=== PATIENT | female | born 1960 | race Caucasian/White ===

== ENCOUNTER 2016-08-21 15:05 | Outpatient (CLI) ==
--- NOTE | 2016-08-21 15:36 | DI ---
EXAM: Cervical spine three view HISTORY: Pain COMPARISON: None TECHNIQUE: Three views cervical spine were performed FINDINGS: Vertebral bodies normal height. No fracture. No subluxation. Intervertebral disc space s maintained. Small marginal osteophyte formation. Mild multileve uncovertebral hypertrophy. Prev ertebral soft tissues appear normal. IMPRESSION: Mild degenerative changes.
--- NOTE | 2016-08-21 15:36 | DI ---
EXAM: Radiographs, left shoulder HISTORY: Left shoulder pain. COMPARISON: None available. TECHNIQUE: Three views. FINDINGS: Bone mineralization is decreased. There is no fracture or dislocation. The joint spaces are maintained. No focal soft tissue abnormality is seen. IMPRESSION: No acute abnormality of the left shoulder.
== END 2016-08-21 15:06 | disposition home or self-care (01) ==
LOC: RAD 15:05
PROVIDERS: ATTEND Internal Medicine
DX: M54.2 Cervicalgia (principal); M25.512 Pain in left shoulder

== ENCOUNTER 2016-09-30 08:49 | Outpatient (RCR) ==
--- NOTE | 2016-10-02 15:47 | RS.OPPTEV2 ---
Date of Note: 09/30/16 Visit #: 1 Date of Evaluation: 09/30/16 Payer Source: Insurance Treatment Diagnosis: Neck pain and left radiating symptoms History of Condition/Mechanism of Injury:: Patient states neck pain started in early August 2016, without any know injury. States she has had sciatica symptoms since 2006. Prior Level of Function.....Patient was independent with: ADL's, Self Care, Work /Vocation, Caregiving, Ambulation/Mobility, Community Integration/Access Level of Function: Reports difficulty with driving and reading due to neck pain. Functional Limitations: Sleep, ADL's, Reaching, Lifting Current Subjective/complaints:: Patient reports pain in the neck and left shoulder area. States pain in the left UE is constant. Reports left shoulder pain increases with ROM. Also states she cannot lay on the left shoulder. Reports no symptoms in the right UE. She denies tingling or numbness in the Left UE. States she has severe headaches that seem to start at the left shoulder and go up to the base of the head. States she does not have much biological aide in the left hand. 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 She also has to be able to carry supplies. States she will have to pass a test before returning to work for lifting and gripping. Treatment Side (optional): Left Medical History Smoking Status: Current some day smoker Hx Home Medications: Gabapentin Patient's Goals: Her goal is to get relief of neck and left UE pain. Pain Assessment - Pain Description Pain Location: left side of neck and left shoulder Current Pain Intensity: 9/10 Worst Pain Intensity: 15/10 Functional Outcome Measure Neck Disability Index: 56 - G Codes & Severity Modifier G Codes & Modifier: NA Source of G Code score: NA Observation - Observation Posture: Forward Head, Rounded Shoulders Handedness: Right Shoulder ROM: Right WFL's Shoulder Muscle Strength: Right WFL's - Left Shoulder ROM Comments: Left shoulder flexion: actively 92 degrees, passively 85-90 degrees. shoulder abduction 70 degrees actively, 90 degrees passively. ER actively to 45 -50 degrees, IR WFL's . All ROM is limited by pain. Left elbow, wrist, and hand AROM is WFL's. Cervical spine AROM is WFL's. - Left Shoulder Strength Comments: Patient exhibits general weakness with MMT of left UE. She demonstrates generally 4-/5. - Special Tests Shoulder Empty Can (Supraspinatus) Test: Positive Left Shoulder Speed's Sign Test: Negative Left Shoulder Drop Arm Test: Negative Left Shoulder Longoria-Prince Impingement Test: Negative Left Bag Liner Strength Left Hand Bag Liner Strength: 10 lbs. Right Hand Bag Liner Strength: 75 lbs. Dynamometer Testing Position: 2nd Position Palpation Comments:: Patient reports tenderness along the left upper traps and left lower cervical paraspinals. Also reports tenderness over the long head of the biceps tendon. Demonstrates minimal increased muscle tone along bilateral cervical paraspinals and upper traps. Sensation - Sensation Right Upper Extremity: Intact/Normal Left Upper Extremity: Intact/Normal - Treatment Modality: Ultrasound Parameters/Method Applied: 1.6 w/cm2 continuous X 10 mins to left upper traps and cervical paraspinals. Patient Position: Sitting Interventions - Exercise/Activities/Manual Therapy Exercises/Activities: Instructed patient in pendulum exercise, scapular retraction, and cervical stretching into lateral flexion and rotation. Manual Therapy: NA HOME EXERCISE PROGRAM: pendulum exercise, scapular retraction, and cervical stretching into lateral flexion and rotation. - Charges Total Direct Minutes: 45 mins Total Treatment Time: 45 mins Procedures billed for this date of service:: Amarjit Ortega, Assessment Assessment: Patient presents with a diagnosis of cervical radiculopathy and cervicalgia. She reports neck and left UE pain. She exhibits limited left shoulder AROM due to reports of pain. Upon MMT the left UE, she demonstrates generalized weakness and presents a submaximal effort with testing left biological aide strength. Left shoulder Supraspinatus test ilicits pain, but Impingement test does not. It is difficult to determine her source of pain, or to determine if it may be overlapping from the neck and shoulder. She demonstrates potential to benefit from modalities, exercises, and education to reduce her symptoms and be able to return to her prior level of function. Patient Education: Education of diagnosis, Body/Joint mechanics, Home Exercise Program, Education of Plan of Care Rehab Potential: Good Short Term Goals Goal #1: Patient independent in basic HEP. Goal to be met by: 10/16/16 Goal #2: Left UE pain frequency decreased to less than constant. Goal to be met by: 10/16/16 Goal #3: Left shoulder AROM WFL's. Goal to be met by: 10/16/16 Goal #4: Tenderness at the left upper traps decreased to minimal. Goal to be met by: 10/16/16 Gis Scientist Goals Goal #1: Pt knows HEP and to continue ex's to maintain functional level at D/C. Goal to be met by: 11/11/16 Goal #2: Neck Disability index improved to 20. Goal to be met by: 11/11/16 Goal #3: Pt will perform all ADL's & functional activities w/o right UE or neck pain Goal to be met by: 11/11/16 Goal #4: Pt will return to work with minimal limitations. Goal to be met by: 11/11/16 Plan - Treatment to be Provided Procedures: Therapeutic Exercises, Therapeutic Activity, Manual Therapy, Patient Education Modalities: Electrical Stimulation, Ultrasound/Phonophoresis, Cryotherapy, Hot Packs, Mechanical Traction (cervical) - Treatment Plan Frequency: 3 X week Duration: 4 weeks ORDER # VISITS AND/OR THROUGH DATE: 11/11/16 - Treatment Code (1) Arm pain Qualifiers: Laterality: left Qualified Description: Pain of left upper extremity Qualifier Code(s): (M79.602) Pain in left arm (2) Neck pain Comments: M54.2 (3) Cervical radiculopathy Comments: M54.12
== END 2016-10-01 ==
PROVIDERS: ATTEND Internal Medicine
DX: M54.12 Radiculopathy, cervical region (principal); M54.2 Cervicalgia; M54.30 Sciatica, unspecified side

== ENCOUNTER 2017-08-18 09:11 | Outpatient (CLI) ==
--- NOTE | 2017-08-19 09:05 | MRI ---
EXAM: Lumbar spine MRI without contrast. HISTORY: Back pain and bilateral leg numbness. COMPARISON: Lumbar spine radiographs 11/10/2014 and lumbar spine MRI 02/05/2012. TECHNIQUE: Multiplanar, multisequence MR images were acquired lumbar spine without contrast. FINDINGS: Conus medullaris ends at L1-2 is normal configuration and signal intensity. The lumbar ve rtebra are normal in height, AP alignment and intrinsic bone marrow signal. There is minor lumbar ve ntral spondylosis with reactive fatty marrow change along the anterior superior endplates at L3 and L 5. Benign intraosseous hemangiomas are present at L1, L2, L3 and L4. The partially visualized liver, spleen and kidneys are unremarkable. There is mild central intrahepa tic biliary ductal dilatation and mild dilatation of the common bile duct which tapers to the duodenu m in this postcholecystectomy patient. There are no paravertebral masses. 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 T12-L1, L1-2, L2-3: The intervertebral discs are normal. L3-4: There is a minor disc bulge that minimally narrows the inferior right neural foramen. L4-5: There is a minor disc bulge that minimally narrows the inferior neural foramina bilaterally an d mild bilateral facet arthropathy and ligamentum flavum hypertrophy. This causes mild bilateral for aminal stenosis. There is no central canal stenosis. L5-S1: The intervertebral disc is normal. IMPRESSION: 1. No change minimal lumbar degenerative spondylosis and mild facet arthropathy at L4-5. 2. No lumbar disc herniations, central canal stenosis or pars interarticularis defects.
== END 2017-08-18 09:12 | disposition home or self-care (01) ==
LOC: RAD 09:11
PROVIDERS: ATTEND Internal Medicine
DX: M54.9 Dorsalgia, unspecified (principal); R20.0 Anesthesia of skin

== ENCOUNTER 2018-02-20 14:18 | Outpatient (CLI) | END 2018-02-20 14:36 | disposition short-term general hospital (02) | LOC: AMBL 14:18 | PROVIDERS: ATTEND Internal Medicine | DX: R07.9 Chest pain, unspecified (principal); R05 Cough; R06.03 Acute respiratory distress; R09.89 Other specified symptoms and signs involving the circulatory and respiratory systems; R00.1 Bradycardia, unspecified ==